=== PATIENT | female | born 1965 | race Caucasian/White ===

== ENCOUNTER 2018-12-24 20:46 | Observation (INO) | payer BC ==
[~2018-12-24] VITALS: Ht 167.6 cm; Wt 63.3 kg
[2018-12-24 22:05] VITALS: PULSE 76
[2018-12-24] MEDS ORDERED: NITROGLYCERIN (SL) 0.4 MG TAB SL PRN (22:30)
[2018-12-24] MEDS ORDERED: BISACODYL (EC) 5 MG TAB PO PRN (22:30)
[2018-12-24] MEDS ORDERED: ONDANSETRON 4 MG INJ IV PRN (22:30)
[2018-12-24] MEDS ORDERED: DOCUSATE SODIUM 100 MG CAP PO PRN (22:30)
[2018-12-24] MEDS ORDERED: ACETAMINOPHEN 325 MG TAB PO PRN (22:30)
[2018-12-24] MEDS ORDERED: NACL 0.9% 3 ML SYG IV SCH (22:30)
[2018-12-24] MEDS ORDERED: morphine 2 MG INJ IV PRN (22:30)
[2018-12-24] MEDS ORDERED: METOCLOPRAMIDE 10 MG INJ IV PRN (22:30)
--- NOTE | 2018-12-24 22:30 | HP ---
Date/Time of Note Date/Time of Note DATE: 12/24/18 TIME: 22:29 Assessment/Plan VTE Prophylaxis SCD applied (from Nsg): Yes Pharmacological prophylaxis: NA/contraindicated Pharm contraindication: low risk/ambulating Assessment/Plan Hospital Course This is a 53-year-old female being admitted to the telemetry floor for observation for: 1. Chest pain: Rule out ACS. Initial troponin was negative at the transferring hospital will trend cardiac enzymes. We will check an echocardiogram. CTA of the chest at the transfer facility was negative for pulmonary embolism. EKG shows incomplete right bundle branch block. PRN nitro/morphine. Will check hemoglobin A1c, lipid panel, TSH CBC, CMP #2 Lupus: Reports that she is on Plaquenil, prednisone will need to confirm her dose before initiating #3 anxiety: PRN Ativan #4 Rheumatoid arthritis: Reports Plaquenil, prednisone will need to confirm her dose #5 hyperlipidemia: Currently not on meds we will check a lipid panel #6 normocytic anemia: Stable, monitor as outpatient #7 DVT GI prophylaxis: SCDs, no GI prophylaxis indicated Further treatment strategy will be implemented as per the clinical course. HPI/ROS Admit Date/Time Admit Date/Time December 24, 2018 at 21:46 Hx of Present Illness This is a 53-year-old female who presented to the emergency department at outside hospital complaining of left chest pressure that occurred 2 days ago. Patient reported the pain radiated to her left arm. It also went to the upper back. She reports it is worse with movement when she sits up. She reports is worse with deep breaths. Denies any nausea vomiting or diarrhea. Allergies: NKDA Medications: See MAR Past medical history: Acid reflux anemia anxiety rheumatoid arthritis hemorrhoids hyperlipidemia Irritable bowel syndrome Lupus Past surgical history: Cholecystectomy, colonoscopy, breast augmentation D&C left sided jaw surgery status post fracture Social history: former smoker Vitals on presentation at the transfer facility: Temperature 98.4/pulse 91/respirations 16/BP 130/84/SPO2 98% on room air next Pertinent laboratory finding from the transferring facility White blood cell 7.4/hemoglobin 12.4/hematocrit 37.4/platelets 275 BMP: Sodium 136/potassium 4.6/chloride 99/CO2 27/BUN 15/creatinine 0.88 Troponin less than 0.01 D-dimer 2.64 Chest x-ray: Lungs are clear normal heart size EKG normal sinus rhythm at approximately 92 bpm incomplete right bundle branch block CTA of the chest showed no CT evidence of pulmonary embolization old granulomatous disease ROS Const: As per HPI Eyes : No pain discharge or redness or change in visual acuity ENT: No pain, sore throat, congestion, congestion, dysphagia or discharge Respiratory: No shortness of breath, cough, sputum, wheezing, or pleuritic pain Cardiovascular: As per HPI GI : no change in appetite, abdominal pain, nausea, vomiting, diarrhea, constipation, or change in the color his stool Genitourinary: No dysuria, hematuria, flank pain , discharge or CVA tenderness Musculoskeletal: No joint pain, back pain, neck pain, restricted range of motion in neck or joints Skin: No rash, bruising or hives Neuro: No headache, dizziness, syncope, seizure, focal weakness Endocrine: No polyuria, polydipsia, temperature intolerance Psych: No hallucination, depression, anxiety or suicidal ideation PMH/Family/Social Past Medical History As per HPI Coded Allergies: codeine (Verified Allergy, Severe, SOB, 12/24/18) Past Surgical History As per HPI Family History Significant Family History: no pertinent family hx Social History As per HPI Exam/Review of Systems Vital Signs Vitals Vital Signs Date Temp Pulse Resp B/P (MAP) Pulse Ox O2 O2 Flow FiO2 Time Delivery Rate 12/24/18 76 22:05 Exam Exam General: She is a pleasant female currently lying in bed in no acute distress HEENT: Atraumatic, normocephalic. The pupils are equal, round and reactive. Extraocular motor are intact Neck: Supple with full range of motion. No rigidity or meningismus Chest: Mild tenderness to palpation over the left anterior chest wall Lungs: Clear to auscultation bilaterally no crackles rales or wheezing Heart: Normal S1-S2, Regular rhythm and rate. No murmur, S3, or S4 Abdomen: Soft , nontender, nondistended , bowel sounds are present. No guarding no rebound tenderness , No masses or organomegaly. No costovertebral temporal angle mass Extremities: Normal to inspection, no edema no cyanosis Musculoskeletal: Tenderness to palpation over the left paraspinal muscle around the T4-T6 level Neurologic: Normal mental status, speech normal, cranial nerves II through XII are intact, motor and sensory are intact, no focal weakness TERRELL LUIS December 24, 2018 22:30
[2018-12-24 23:23] VITALS: Ht 167.6 cm; Wt 63.3 kg
[2018-12-25] VITALS (9 sets, daily range): BP systolic 90–98; BP diastolic 49–54; PULSE 56–74; RESP 18
[2018-12-25] MEDS ORDERED: ASPIRIN 81 MG TAB PO SCH (09:00)
--- NOTE | 2018-12-25 12:17 | DS ---
Date/Time of Note Date/Time of Note DATE: 12/25/18 TIME: 12:15 Discharge Summary Admission/Discharge Info Admit Date/Time December 24, 2018 at 21:46 Discharge Date/Time Discharge Diagnosis Chest pain, likely musculoskeletal/arthritis versus possible GERD. Stable. ACS ruled out. Rheumatoid arthritis Lupus Chronic anemia. Fatty liver GERD Patient Condition: Good Hospital Course 53-year-old female with a history of lupus, rheumatoid arthritis, chronic anemia, admitted with substernal chest pain with radiation to left shoulder and arm. Patient was ruled out for acute coronary syndrome with serial cardiac markers, EKG. Patient's pain improved with analgesics. At this time, most likely her pain is musculoskeletal as it is also somewhat reproducible. She could also have possible GERD/gastritis symptoms secondary to lupus medications. Please note that patient also has extensive arthritis history. Patient was also noted with elevated AST/ALT with no bilirubinemia. Her liver ultrasound also showed fatty liver which explains the elevation. Patient's right upper quadrant exam benign. No further work-up patient needed for this as this is a concurrent findings with the above. At this time, patient is feeling back to baseline and is eager to be discharged. Patient to follow-up with her primary care physician in 1 week. Approximately 60 m spent on coordinating the discharge on this patient. Patient was seen in collaboration with Dr. Blake. Home Meds Active Scripts Famotidine* (Pepcid*) 20 Mg Tablet, 20 MG PO BID, #60 TAB Prov:LONI TENA V. FLUXER 12/25/18 Ibuprofen* (Ibuprofen*) 400 Mg Tablet, 400 MG PO Q6H PRN for PAIN, #30 TAB Prov:LONI TENA V. FLUXER 12/25/18 Primary Care Provider Monico Herbert MD Pending Labs Laboratory Tests Test 12/24/18 22:43 12/25/18 04:23 12/25/18 04:25 White Blood Count 5.0 3.7 10^3/ul (4.8-10.8) 10^3/ul (4.8-10.8) Red Blood Count 3.98 3.88 10^6/ul (4.20-5.40) 10^6/ul (4.20-5.40) Hemoglobin 11.1 10.9 g/dl (12.0-16.0) g/dl (12.0-16.0) Hematocrit 34.3 % (37.0-47.0) 33.7 % (37.0-47.0) Mean Corpuscular 86.2 fl (82.0-101.0) 86.9 fl (82.0-101.0) Volume Mean Corpuscular 27.9 pg (29.0-33.0) 28.1 pg (29.0-33.0) Hemoglobin Mean Corpuscular 32.4 32.3 Hemoglobin Concent g/dl (32.0-37.0) g/dl (32.0-37.0) Red Cell 13.5 % (11.5-14.5) 13.4 % (11.5-14.5) Distribution Width Platelet Count 242 243 10^3/UL (140-415) 10^3/UL (140-415) Mean Platelet 10.8 fl (7.4-10.4) 11.0 fl (7.4-10.4) Volume Immature 0.400 0.300 Granulocytes % % (0.001-0.429) % (0.001-0.429) Neutrophils % 73.8 % (39.0-77.0) 60.9 % (39.0-77.0) Lymphocytes % 15.9 % (15.0-51.0) 25.1 % (15.0-51.0) Monocytes % 7.5 % (0.0-11.0) 10.5 % (0.0-11.0) Eosinophils % 1.8 % (0.0-7.0) 2.7 % (0.0-7.0) Basophils % 0.6 % (0.0-2.0) 0.5 % (0.0-2.0) Nucleated Red Blood 0.0 0.0 Cells % /100WBC (0.0-0.0) /100WBC (0.0-0.0) Immature 0.020 0.010 Granulocytes # 10^3/ul (0.0-0.031) 10^3/ul (0.0-0.031) Neutrophils # 3.7 2.3 10^3/ul (1.6-7.5) 10^3/ul (1.6-7.5) Lymphocytes # 0.8 0.9 10^3/ul (0.8-2.9) 10^3/ul (0.8-2.9) Monocytes # 0.4 0.4 10^3/ul (0.3-0.9) 10^3/ul (0.3-0.9) Eosinophils # 0.1 0.1 10^3/ul (0.0-0.5) 10^3/ul (0.0-0.5) Basophils # 0.0 0.0 10^3/ul (0.0-0.1) 10^3/ul (0.0-0.1) Nucleated Red Blood 0.0 0.0 Cells # 10^3/ul (0.0-0.0) 10^3/ul (0.0-0.0) Sodium Level 139 mmol/L (135-144) 141 mmol/L (135-144) Potassium Level 4.1 mmol/L (3.5-5.1) 4.3 mmol/L (3.5-5.1) Chloride Level 106 mmol/L (97-110) 108 mmol/L (97-110) Carbon Dioxide 27 mmol/L (21-31) 28 mmol/L (21-31) Level Anion Gap 6 (5-13) 5 (5-13) Blood Urea Nitrogen 13 mg/dl (7-20) 12 mg/dl (7-20) Creatinine 0.77 0.75 mg/dl (0.44-1.00) mg/dl (0.44-1.00) Est Glomerular > 60 mL/min (>60) > 60 mL/min (>60) Filtrat Rate mL/min Glucose Level 122 mg/dl (70-220) 96 mg/dl (70-220) Calcium Level 9.2 mg/dl (8.4-10.2) 9.5 mg/dl (8.4-10.2) Total Bilirubin 0.6 mg/dl (0.2-1.3) 0.5 mg/dl (0.2-1.3) Direct Bilirubin 0.00 0.00 mg/dl (0.00-0.20) mg/dl (0.00-0.20) Indirect Bilirubin 0.6 mg/dl (0-1.1) 0.5 mg/dl (0-1.1) Aspartate Amino 406 IU/L (15-46) 381 IU/L (15-46) Transf (AST/SGOT) Alanine 243 IU/L (13-69) 325 IU/L (13-69) Aminotransferase (AL T/SGPT) Alkaline 107 IU/L (42-121) 106 IU/L (42-121) Phosphatase Creatine Kinase 80 IU/L (23-200) 76 IU/L (23-200) Creatine Kinase 1.1 1.1 Index Creatinine Kinase MB 0.88 ng/ml (0.0-2.4) 0.84 ng/ml (0.0-2.4) (Mass) Troponin I < 0.012 < 0.012 ng/ml (0.000-0.120) ng/ml (0.000-0.120) Total Protein 7.3 g/dl (6.1-8.1) 6.7 g/dl (6.1-8.1) Albumin 3.8 g/dl (3.3-4.9) 3.5 g/dl (3.3-4.9) Globulin 3.50 g/dl (1.3-3.2) 3.20 g/dl (1.3-3.2) Albumin/Globulin 1.08 1.09 Ratio Magnesium Level 2.0 mg/dl (1.7-2.5) Triglycerides Level 36 mg/dl (0-149) Cholesterol Level 150 mg/dl (100-200) LDL Cholesterol, 88 mg/dl Calculated HDL Cholesterol 55 mg/dl (37-92) Cholesterol/HDL 2.7 RATIO Ratio Thyroid Stimulating 0.635 Hormone (TSH) MIU/L (0.465-4.680) Hemoglobin A1c 5.7 % (0-5.9) LONI TENA NP December 25, 2018 12:17
--- NOTE | 2018-12-25 12:18 | PDOCDIS ---
Discharge Instructions DIAGNOSIS Discharge Diagnosis Chest pain, likely musculoskeletal/arthritis. Stable. ACS ruled out. Rheumatoid arthritis Lupus Chronic anemia. Fatty liver CONDITION [id number] Patient Condition: [id number] Stable HOME CARE INSTRUCTIONS: [id number] Diet Instructions: [id number] Regular FOLLOW UP/APPOINTMENTS Follow-up Plan Follow-up with primary care physician in 1 week LONI TENA NP December 25, 2018 12:18
[2018-12-25] MEDS ORDERED: IBUP-1541 PO (12:19)
[2018-12-25] MEDS ORDERED: FAMO-96 PO (12:19)
--- NOTE | 2018-12-25 15:59 | RADRPT ---
Vent Rate: 54 bpm RR Interval: 1112 msec MN Interval: 147 msec QRS Duration: 101 msec QT Interval: 457 msec QTC Interval: 433 msec P-R-T [place]: 48 - 107 - 79 degrees Sinus Bradycardia Right axis deviation...QRS axis (100,269) ST elev, probable normal early repol pattern...ST elevation, age<55 Electronically Signed By: Ron Burr
--- NOTE | 2018-12-25 18:21 | RADRPT ---
Echocardiogram Report Patient Name: LÁZARO BELTRANPatient ID: [id number] : 1965 (53y 10m)Study Date: 12/25/2018 8:33:59 AM Gender: FAccession #: [id number] Tech: Talat Noland [facility] Location: [facility] Ref.Physician: TERRELL LUIS Height(Cm): BSA: Weight(Kg): Quality: AdequateAccount #: Procedures: Echocardiographic Report: Transthoracic echocardiogram with complete 2D, M-Mode, and doppler examination. Indications: Chest Pain. Measurements: 2D/M Mode Doppler Measurement Value Normal Range Measurement Value Normal Range LVIDd 2D 3.6 [ 3.8 - 5.2 ] cm AV Peak Neo 1.1 [ 100.0 - 170.0 ] cm/sec LVIDs 2D 1.9 [ 2.2 - 3.5 ] cm AV Peak PG 5.0 [ 2.0 - 9.0 ] mmHg LVPWd 2D 0.7 [ 0.6 - 0.9 ] cm LVOT Peak Neo 1.0 [ 70.0 - 110.0 ] cm/sec IVSd 2D 0.7 [ 0.6 - 0.9 ] cm LVOT Peak PG 4.0 [ 2.0 - 6.0 ] mmHg AoR Diam 2D 2.7 [ 2.3 - 3.1 ] cm MV E Peak Neo 1.2 [ 60.0 - 130.0 ] cm/sec EDV 2D 53.3 [ 46.0 - 106.0 ] ml MV A Peak Neo 0.9 [ 100.0 - 120.0 ] cm/sec ESV 2D 11.8 [ 14.0 - 42.0 ] ml MV E/A 1.3 [ 0.8 - 1.5 ] ratio EF 2D 77.9 [ 54.0 - 74.0 ] percent MV Decel Time 218 [ 104 - 258 ] msec LA Dimen 2D 2.7 [ 2.7 - 3.8 ] cm Lat E` Neo 0.2 [ 10.0 - 15.0 ] cm/sec Lateral E/E` 7.2 [ 1.0 - 2.0 ] ratio MV E/A 1.3 [ 0.8 - 1.5 ] ratio TR Peak Neo 1.7 [ 100.0 - 280.0 ] cm/sec TR Peak PG 12.0 mmHg RVSP 15.0 [ 10.0 - 36.0 ] mmHg RA Pressure 3.0 mmHg Findings: Left Ventricle: Normal left ventricular systolic function. Normal left ventricular cavity size. Normal left ventricular wall thickness. Ejection fraction is visually estimated at 60 %. Tissue Doppler/Mitral Doppler indices are within normal limits. Right Ventricle: Normal right ventricular size. Normal right ventricular systolic function. Left Atrium: The left atrium is normal in size. Right Atrium: The right atrium is normal in size. Mitral Valve: Normal appearance and function of the mitral valve with trace physiologic regurgitation. Aortic Valve: Normal appearance of the aortic valve. No significant aortic stenosis or insufficiency. Tricuspid Valve: Normal appearance of the tricuspid valve. Estimated peak PA systolic pressure 15 mmHg. There is trace tricuspid regurgitation. Pulmonic Valve: Pulmonic valve not well visualized. Pericardium: Normal pericardium with no significant pericardial effusion. Pleural effusion seen. Aorta: Normal aortic root. IVC: Normal size and normal respiratory collapse consistent with normal right atrial pressure. Conclusions: Normal left ventricular systolic function. Normal left ventricular cavity size. Normal left ventricular wall thickness. Ejection fraction is visually estimated at 60 %. Tissue Doppler/Mitral Doppler indices are within normal limits. Normal appearance and function of the mitral valve with trace physiologic regurgitation. Normal appearance of the tricuspid valve. Estimated peak PA systolic pressure 15 mmHg. There is trace tricuspid regurgitation. Electronically Signed By: Carlos Snyder 2018-12-25 18:20:26 PDT
== END 2018-12-25 15:55 | disposition home or self-care (01) ==
LOC: 6WM 21:46 → INTOOBSV 21:46
PROVIDERS: ADMIT Family Medicine; ATTEND Family Medicine
DX: R07.9 Chest pain, unspecified (principal); M06.9 Rheumatoid arthritis, unspecified; M32.9 Systemic lupus erythematosus, unspecified; D64.9 Anemia, unspecified; K76.0 Fatty (change of) liver, not elsewhere classified; K21.9 Gastro-esophageal reflux disease without esophagitis
CPT/HCPCS: 76705; 80053; 80061; 82306; 82550; 82553; 83036; 83735; 84443; 84484; 85025; 93005; 93306; Z7500; Z7610; 99217; G0378